=== PATIENT | female | born 1955 | race African-American/Black ===

== ENCOUNTER 2020-07-09 05:35 | Inpatient (IN) ==
[2020-07-03 12:46] LABS: Bacteria,Urine Occasional /HPF (Few); Bilirubin,Urine Negative (Negative); Blood, Urine Negative (Negative); Glucose,Urine (UA) Negative (Negative); Hyaline Casts,Urine 5 /LPF (0-3); Ketones,Urine Negative (Negative); Mucus,Urine Occasional /LPF (Occasional); Nitrite,Urine Negative (Negative); Protein,Urine Negative; RBC,Urine <1 /HPF (0-4); Squamous Epithelial Cell,Urine Few /HPF (0-10); Urine Appearance CLEAR (Clear); Urine Color Yellow (Yellow); Urine Specific Gravity 1.017 (1.001-1.035); Urine Urobilinogen < 2.0 EU/DL (0.2-1.0); WBC,Urine <1 /HPF (0-6)
[~2020-07-09 05:35] MED LIST: ACETAMINOPHEN 500 MG TABLET PO ONE; FAMOTIDINE 20 MG TABLET PO ONE; GABAPENTIN 400 MG CAPSULE PO ONE
[2020-07-09] MEDS ORDERED: ceFAZolin 1,000 MG VIAL ONE (05:56)
[2020-07-09] MEDS ORDERED: ACETAMINOPHEN 500 MG TABLET ONE (05:57)
[2020-07-09] MEDS ORDERED: FAMOTIDINE 20 MG TABLET ONE (05:57)
[2020-07-09] MEDS ORDERED: GABAPENTIN 400 MG CAPSULE ONE (05:57)
[2020-07-09] MEDS ORDERED: LACTATED RINGERS 1,000 ML IV SCH (06:00)
[2020-07-09] MEDS ORDERED: VANCOMYCIN INJ 1,000 MG in SODIUM CHLORIDE 0.9% 250 ML IV ONE (06:30)
[2020-07-09] MEDS ORDERED: DIAZEPAM 5 MG TABLET PO STA (06:50)
[2020-07-09 06:56] LABS: INR 0.9; PT Patient Result 10.3 SECS (9.8-11.9)
[2020-07-09] MEDS ORDERED: BACITRACIN OINT 0.9 GM PACK TOP ONE (07:46)
[2020-07-09] MEDS ORDERED: DEXAMETHASONE 4 MG/1 ML VIAL ONE ×2 (08:22→10:25)
[2020-07-09] MEDS ORDERED: ROPIVACAINE 0.5% 30 ML VIAL ONE (08:22)
[2020-07-09] MEDS ORDERED: fentaNYL 100 MCG/2 ML VIAL ONE (08:31)
[2020-07-09] MEDS ORDERED: MIDAZOLAM 2 MG/2 ML VIAL ONE (08:32)
[2020-07-09] MEDS ORDERED: GLUCAGON 1 MG VIAL IM PRN ×2 (09:35→15:48)
[2020-07-09] MEDS ORDERED: DEXTROSE 50% 25 GM/50 ML VIAL IV PRN ×2 (09:35→15:48)
[2020-07-09] MEDS ORDERED: MAGNESIUM HYDROXIDE SUSP 30 ML UDCUP PO PRN (09:36)
[2020-07-09] MEDS ORDERED: ZALEPLON 5 MG CAPSULE PO PRN (09:36)
[2020-07-09] MEDS ORDERED: HYDROmorphone 2 MG/1 ML VIAL IV PRN ×2 (09:36)
[2020-07-09] MEDS ORDERED: ONDANSETRON 4 MG/2 ML VIAL IV PRN ×2 (09:36→11:13)
[2020-07-09] MEDS ORDERED: diphenhydrAMINE CAP 25 MG CAPSULE PO PRN (09:36)
[2020-07-09] MEDS ORDERED: oxyCODONE IR 5 MG TABLET PO PRN (09:36)
[2020-07-09] MEDS ORDERED: SEVOFLURANE 1 UNIT/15 MINUTE INH ONE ×6 (10:25→11:15)
[2020-07-09] MEDS ORDERED: BUPIVACAINE SPINAL 0.75% 2 ML AMP SPINAL ONE ×2 (10:25)
[2020-07-09] MEDS ORDERED: propofoL 200 MG/20 ML VIAL IV ONE (10:25)
[2020-07-09] MEDS ORDERED: ROCURONIUM 50 MG/5 ML VIAL IV ONE (10:25)
[2020-07-09] MEDS ORDERED: SUCCINYLCHOLINE 200 MG/10 ML VIAL ONE (10:25)
[2020-07-09] MEDS ORDERED: ONDANSETRON 4 MG/2 ML VIAL ONE (10:25)
[2020-07-09] MEDS: HYDROmorphone 2 MG/1 ML VIAL IV PRN ×3 (11:09→12:10)
[2020-07-09] MEDS ORDERED: MEPERIDINE 25 MG/1 ML VIAL IV PRN (11:13)
[2020-07-09] MEDS ORDERED: NICOTINE 14 MG/24 HR PATCH TRANSDERM PRN (18:05)
[2020-07-09] MEDS: ceFAZolin 2,000 MG in PREMIX 1 EACH IV SCH ×2 (18:05→22:11)
[2020-07-09] MEDS: INSULIN LISPRO 100 UNIT/ML SUBCUT SCH ×3 (18:06→22:12)
[2020-07-09] MEDS: LACTATED RINGERS 1,000 ML IV SCH ×2 (18:06→18:14)
[2020-07-09] MEDS: oxyCODONE/ACETAMINOPHEN 5-325 MG TABLET PO PRN (22:13)
[2020-07-09] MEDS: APIXABAN 2.5 MG TABLET PO SCH (22:13)
[2020-07-09] MEDS: PANTOPRAZOLE 40 MG TABLET PO SCH (22:13)
[2020-07-10] MEDS: oxyCODONE IR 5 MG TABLET PO PRN ×2 (01:37→06:15)
[2020-07-10] MEDS: LACTATED RINGERS 1,000 ML IV SCH (01:38)
[2020-07-10 05:52] LABS: Basophils % 0.4 % (0.0-0.8); Eosinophils % 0.2 % (0.00-10.9); Hematocrit 33.3 VOL% (35.7-47.0); Hemoglobin 10.8 GM/DL (12.0-16.0); Immature Granulocytes % 0.4 %; Immature Granulocytes Absolute 0.04 #; Lymphocytes # 1.9 10*3/uL (1.4-4.0); Lymphocytes % 17.7 % (21.3-54.2); Mean Corpuscular HGB Conc 32.4 GM/DL (32-36); Mean Corpuscular Volume 98.2 FL (87-102); Monocytes % 10.3 % (1.7-12.7); Platelet Count 323 T/CUMM (130-400); Red Blood Count 3.39 MC/CUMM (3.8-5.5); Red Cell Distribution Width 15.6 % (9.3-17.3); White Blood Count 10.9 T/CUMM (4-12)
[2020-07-10 06:08] LABS: Calcium 8.5 MG/DL (8.5-10.1); Osmolality,Calculated 284.4 MOS/KG (273-304)
[2020-07-10] MEDS: LEVOTHYROXINE 150 MCG TABLET PO SCH (06:15)
[2020-07-10] MEDS ORDERED: INSULIN NPH/REGULAR 70/30 100 UNIT/ML SUBCUT SCH ×2 (09:00)
[2020-07-10] MEDS: INSULIN LISPRO 100 UNIT/ML SUBCUT SCH ×4 (09:12→21:38)
[2020-07-10] MEDS: PANTOPRAZOLE 40 MG TABLET PO SCH ×2 (09:13→21:36)
[2020-07-10] MEDS: LOSARTAN/HCTZ 50-12.5 MG TABLET PO SCH (09:13)
[2020-07-10] MEDS: APIXABAN 2.5 MG TABLET PO SCH ×2 (09:13→21:36)
[2020-07-10] MEDS: LINACLOTIDE 145 MCG CAPSULE PO SCH (09:13)
[2020-07-10] MEDS: amLODIPine 10 MG TABLET PO SCH (09:13)
[2020-07-10] MEDS: OLMESARTAN 20 MG TABLET PO SCH (09:13)
[2020-07-10] MEDS: LORATADINE 10 MG TABLET PO SCH (09:13)
[2020-07-10] MEDS: hydroCHLOROthiazide 25 MG TABLET PO SCH (09:13)
[2020-07-10] MEDS: oxyCODONE/ACETAMINOPHEN 5-325 MG TABLET PO PRN ×3 (11:55→21:37)
[2020-07-10] MEDS: DOXYCYCLINE HYCLATE 100 MG CAPSULE PO SCH ×2 (11:55→17:56)
[2020-07-10] MEDS: MUPIROCIN 2% OINT 22 GM TUBE TOP SCH ×2 (13:10→21:38)
[2020-07-11] MEDS: oxyCODONE/ACETAMINOPHEN 5-325 MG TABLET PO PRN ×2 (04:25→20:58)
[2020-07-11 05:24] LABS: Basophils % 0.4 % (0.0-0.8); Eosinophils # 0.1 10*3/uL (0.0-0.87); Eosinophils % 0.8 % (0.00-10.9); Hematocrit 32.3 VOL% (35.7-47.0); Hemoglobin 10.6 GM/DL (12.0-16.0); Immature Granulocytes % 0.5 %; Immature Granulocytes Absolute 0.05 #; Lymphocytes # 2.1 10*3/uL (1.4-4.0); Lymphocytes % 20.3 % (21.3-54.2); Mean Corpuscular HGB Conc 32.8 GM/DL (32-36); Mean Corpuscular Volume 96.4 FL (87-102); Mean Platelet Volume 10.2 FL (9.6-12.0); Monocytes % 12.4 % (1.7-12.7); Neutrophils % 65.6 % (38.7-73.9); Platelet Count 302 T/CUMM (130-400); Red Blood Count 3.35 MC/CUMM (3.8-5.5); Red Cell Distribution Width 15.5 % (9.3-17.3); White Blood Count 10.2 T/CUMM (4-12)
[2020-07-11] MEDS: LEVOTHYROXINE 150 MCG TABLET PO SCH (06:32)
[2020-07-11] MEDS ORDERED: INSULIN NPH/REGULAR 70/30 100 UNIT/ML SUBCUT SCH (09:00)
[2020-07-11] MEDS: OLMESARTAN 20 MG TABLET PO SCH (09:50)
[2020-07-11] MEDS: DOXYCYCLINE HYCLATE 100 MG CAPSULE PO SCH ×2 (09:50→17:54)
[2020-07-11] MEDS: LOSARTAN/HCTZ 50-12.5 MG TABLET PO SCH (09:50)
[2020-07-11] MEDS: APIXABAN 2.5 MG TABLET PO SCH ×2 (09:50→20:57)
[2020-07-11] MEDS: hydroCHLOROthiazide 25 MG TABLET PO SCH (09:50)
[2020-07-11] MEDS: LORATADINE 10 MG TABLET PO SCH (09:51)
[2020-07-11] MEDS: LINACLOTIDE 145 MCG CAPSULE PO SCH (09:52)
[2020-07-11] MEDS: amLODIPine 10 MG TABLET PO SCH (09:53)
[2020-07-11] MEDS: PANTOPRAZOLE 40 MG TABLET PO SCH ×2 (09:55→20:57)
[2020-07-11] MEDS: INSULIN LISPRO 100 UNIT/ML SUBCUT SCH ×4 (11:33→20:58)
[2020-07-11] MEDS: MUPIROCIN 2% OINT 22 GM TUBE TOP SCH ×2 (15:03→20:56)
[2020-07-12 05:31] LABS: Basophils % 0.4 % (0.0-0.8); Eosinophils # 0.1 10*3/uL (0.0-0.87); Eosinophils % 1.4 % (0.00-10.9); Hematocrit 32.3 VOL% (35.7-47.0); Hemoglobin 10.5 GM/DL (12.0-16.0); Immature Granulocytes % 0.4 %; Immature Granulocytes Absolute 0.03 #; Lymphocytes # 1.8 10*3/uL (1.4-4.0); Lymphocytes % 22.6 % (21.3-54.2); Mean Corpuscular HGB Conc 32.5 GM/DL (32-36); Mean Corpuscular Volume 98.2 FL (87-102); Mean Platelet Volume 10.1 FL (9.6-12.0); Monocytes % 12.9 % (1.7-12.7); Neutrophils % 62.3 % (38.7-73.9); Platelet Count 310 T/CUMM (130-400); Red Blood Count 3.29 MC/CUMM (3.8-5.5); Red Cell Distribution Width 15.2 % (9.3-17.3)
[2020-07-12] MEDS: LEVOTHYROXINE 150 MCG TABLET PO SCH (06:37)
[2020-07-12] MEDS ORDERED: INSULIN NPH/REGULAR 70/30 100 UNIT/ML SUBCUT SCH (09:00)
[2020-07-12] MEDS: INSULIN LISPRO 100 UNIT/ML SUBCUT SCH ×2 (09:38→14:49)
[2020-07-12] MEDS: OLMESARTAN 20 MG TABLET PO SCH (09:40)
[2020-07-12] MEDS: APIXABAN 2.5 MG TABLET PO SCH (09:40)
[2020-07-12] MEDS: LORATADINE 10 MG TABLET PO SCH (09:40)
[2020-07-12] MEDS: amLODIPine 10 MG TABLET PO SCH (09:40)
[2020-07-12] MEDS: DOXYCYCLINE HYCLATE 100 MG CAPSULE PO SCH (09:40)
[2020-07-12] MEDS: PANTOPRAZOLE 40 MG TABLET PO SCH (09:40)
[2020-07-12] MEDS: hydroCHLOROthiazide 25 MG TABLET PO SCH (09:41)
[2020-07-12] MEDS: LINACLOTIDE 145 MCG CAPSULE PO SCH (09:42)
[2020-07-12] MEDS: MUPIROCIN 2% OINT 22 GM TUBE TOP SCH (09:44)
[2020-07-12] MEDS: oxyCODONE/ACETAMINOPHEN 5-325 MG TABLET PO PRN (09:50)
[2020-07-12 11:51] VITALS: BP 127/56
[2020-07-12] MEDS ORDERED: BISACODYL 10 MG SUPP RECTAL ONE (13:27)
== END 2020-07-12 14:47 | disposition swing bed (61) | DRG 470 ==
LOC: N.OR 05:35 → N.SDSINP 05:48 → N.OR 09:13 → N.SDSINP 09:14 → N.3E 15:33
PROVIDERS: ADMIT Orthopaedic Surgery; ATTEND Orthopaedic Surgery